=== PATIENT | male | born 1980 | race Caucasian/White ===

== ENCOUNTER 2018-12-03 07:29 | Observation (INO) | payer SELFPAY ==
[2018-12-03] MEDS ORDERED: ONDANSETRON HCL INJ/PF 4 MG/2 ML SDV IV ONE (07:58)
[2018-12-03] MEDS ORDERED: MORPHINE SULFATE 10 MG/ML INJ IV ONE ×2 (07:58→10:36)
[2018-12-03] MEDS ORDERED: VANCOMYCIN HCL INJ 1000 MG VIAL IV ONE ×2 (08:00→11:00)
[2018-12-03 08:10] LABS: ABSOLUTE BASOPHILS # (AUTO) 0.1 10^3/uL (0.0-0.2); ABSOLUTE EOSINOPHILS # (AUTO) 0.2 10^3/uL (0.0-0.6); ABSOLUTE LYMPHOCYTES (AUTO) 1.4 10^3/uL (0.5-4.7); ABSOLUTE MONOCYTES (AUTO) 1.1 10^3/uL (0.1-1.4); ABSOLUTE NEUT (AUTO) 10.7 10^3/uL (1.7-8.2); BASOPHILS % (AUTO) 0.5 % (0-2); EOSINOPHILS % (AUTO) 1.6 % (0-6); HEMATOCRIT 43.5 % (37.9-51.0); LYMPHOCYTES % (AUTO) 10.6 % (13-45); MEAN CORPUSCULAR HEMOGLOBIN 29.7 pg (27.0-33.4); MEAN CORPUSCULAR HGB CONC 34.5 g/dL (32.0-36.0); MEAN CORPUSCULAR VOLUME 86 fl (80-97); MONOCYTES % (AUTO) 8.2 % (3-13); PLATELET COUNT 235 10^3/uL (150-450); RED BLOOD COUNT 5.06 10^6/uL (4.35-5.55); RED CELL DISTRIBUTION WIDTH 12.2 % (11.5-14.0); SEGMENTED NEUTROPHILS % (AUTO) 79.1 % (42-78); TOTAL CELLS COUNTED % (AUTO) 100 %; WHITE BLOOD COUNT 13.5 10^3/uL (4.0-10.5)
[2018-12-03] MEDS ORDERED: LEVOFLOXACIN 750 MG/D5W RTU 750 MG/150 ML RTUPB IV ONE (08:12)
--- NOTE | 2018-12-03 08:42 | RADIOLOGY REPORT (SQ) ---
EXAM DESCRIPTION: HAND LEFT 3 VIEWS COMPLETED DATE/TIME: 12/03/2018 8:24 am REASON FOR STUDY: abscess/infection 5th prox phalanx COMPARISON: None. EXAM PARAMETERS: NUMBER OF VIEWS: Three views. TECHNIQUE: AP, lateral and oblique radiographic images acquired of the left hand. LIMITATIONS: None. FINDINGS: MINERALIZATION: Normal. BONES: No acute fracture or dislocation. No worrisome bone lesions. JOINTS: No effusions. SOFT TISSUES: Swelling 5th phalanx. No foreign body. OTHER: No other significant finding. IMPRESSION: No evidence of osteomyelitis. TECHNICAL DOCUMENTATION: JOB ID: [id number] [employer]- All Rights Reserved Reading location - IP/workstation name: [email or web address]
--- NOTE | 2018-12-03 08:45 | ER Document Report ---
ED General - General Chief Complaint: Hand Swelling Stated Complaint: HAND PAIN Time Seen by Provider: 12/03/18 07:46 TRAVEL OUTSIDE OF THE [place] IN LAST 30 DAYS: No - HPI Notes: Patient presents emergency department for evaluation of swelling of the hand. He states he has had a possible abscess with swelling of the left fifth digit. He denies any injury. He states he "tried to edin it" without any significant results. No fevers or chills. No nausea or vomiting. He is right-hand dominant. He states he has significant pain, particularly with movement. He rates it a 9 out of 10. He describes it as a sharp and stabbing pain. He states the pain radiates from his hand all the way into his left axilla. - Related Data Allergies/Adverse Reactions: Penicillins Allergy (Verified 12/03/18 07:47) Past Medical History - Social History Smoking Status: Current Every Day Smoker Chew tobacco use (# tins/day): No Frequency of alcohol use: None Drug Abuse: None Family History: Reviewed & Not Pertinent Patient has suicidal ideation: No Patient has homicidal ideation: No Renal/ Medical History: Denies: Hx Peritoneal Dialysis Other: Patient states he has had an abscess in the past, unsure as to whether or not it was MRSA. - Immunizations Hx Diphtheria, Pertussis, Tetanus Vaccination: Yes Review of Systems - Review of Systems Constitutional: No symptoms reported EENT: No symptoms reported Cardiovascular: No symptoms reported Respiratory: No symptoms reported Gastrointestinal: No symptoms reported Male Genitourinary: No symptoms reported Musculoskeletal: See HPI Skin: See HPI Physical Exam - Vital signs Vitals: Temp Pulse Resp BP Pulse Ox 97.6 F 107 H 18 143/89 H 98 12/03/18 07:33 12/03/18 07:33 12/03/18 07:33 12/03/18 07:33 12/03/18 07:33 Interpretation: Tachycardic - Notes Notes: Vital signs reviewed, please refer to chart. Patient is normocephalic, atraumatic. Pupils equal round, reactive to light. Neck is supple without men ingismus. Heart is regular rate and rhythm. Lungs are clear to auscultation bilaterally. Abdomen is soft, nontender, normoactive bowel sounds throughout. Extremities without cyanosis, clubbing. Peripheral pulses are equal. Patient is awake, alert, neurological exam is nonfocal. Examination of the left upper extremity is a moderate amount of swelling of the left hand and the left wrist. There is significant edema and an abscess over the proximal fifth phalanx, dorsal aspect. Patient holds the finger in a flexed position, passive extension or movement of any sort causes significant pain. He is tender over the entire extensor tendon. He has lymphangitic streaking there was approximately 5 cm proximal to the distal ulna. Radial pulses 2+. Capillary refill is brisk. Course - Re-evaluation Re-evalutation: 12/03/18 08:45 Patient presents emergency department for evaluation. He is unsure as to whether or not he has a history of MRSA. Given the location of his abscess and the surrounding cellulitis surrounding, as well as the lymphangitic streaking and pain into his axilla. I am concerned this patient may be septic with a tenosynovitis. He is given IV vancomycin and Levaquin. Given pain medication, improved upon recheck. 12/03/18 10:20 Patient rechecked. His white count is elevated. His heart rate did improve after IV fluids and pain medication. I am still concerned about the possibility of tenosynovitis. I spoke to our on-call orthopedic physician, who will admit the patient for further care. The patient was given verbal orders to main n.p.o., order placed. - Vital Signs Vital signs: Temp Pulse Resp BP Pulse Ox 97.6 F 107 H 18 143/89 H 98 12/03/18 07:33 12/03/18 07:33 12/03/18 07:33 12/03/18 07:33 12/03/18 07:33 - Laboratory Result Diagrams: 12/03/18 07:58 12/03/18 08:36 Laboratory results interpreted by me: 12/03/18 12/03/18 07:58 08:36 WBC 13.5 H Seg Neutrophils % 79.1 H Lymphocytes % 10.6 L Absolute Neutrophils 10.7 H C-Reactive Protein 46.9 H - Diagnostic Test Radiology reviewed: Reports reviewed - Negative for osteomyelitis - Consults Christina Reason for consultation: 12/03/18 10:20 Will admit the patient Discharge - Discharge Clinical Impression: Tenosynovitis of finger and hand, Cellulitis Condition: Stable Disposition: ADMITTED INPATIENT Admitting Provider: Christina Unit Admitted: Medical Floor
[2018-12-03 09:09] LABS: ALANINE AMINOTRANSFERASE 26 U/L (21-72); ALBUMIN 4.3 g/dL (3.5-5.0); ALKALINE PHOSPHATASE 96 U/L (38-126); ANION GAP 11 (5-19); ASPARTATE AMINO TRANSFERASE 23 U/L (17-59); BILIRUBIN,DIRECT 0.3 mg/dL (0.0-0.4); BILIRUBIN,TOTAL 0.3 mg/dL (0.2-1.3); BLOOD UREA NITROGEN 9 mg/dL (7-20); C-REACTIVE PROTEIN 46.9 mg/L (<10.0); CALCIUM 9.2 mg/dL (8.4-10.2); CARBON DIOXIDE 30 mmol/L (22-30); CHLORIDE 100 mmol/L (98-107); GLUCOSE 91 mg/dL (75-110); POTASSIUM 4.2 mmol/L (3.6-5.0); SODIUM 140.7 mmol/L (137-145); TOTAL PROTEIN 6.9 g/dL (6.3-8.2)
[2018-12-03] MEDS ORDERED: LIDOCAINE 1% INJ-PF (10 MG/ML) 30 ML SDV ONE (13:27)
[2018-12-03] MEDS ORDERED: MORPHINE SULFATE 10 MG/ML INJ IV PRN (14:10)
[2018-12-03] MEDS ORDERED: ONDANSETRON HCL INJ/PF 4 MG/2 ML SDV IV PRN (14:10)
[2018-12-03] MEDS: OXYCODONE-ACETAMINOPHEN 5-325 MG TABLET PO PRN ×2 (14:48→23:28)
--- NOTE | 2018-12-03 14:48 | PDOC H&P ---
History of Present Illness Admission Date/PCP: 12/03/18 10:45 Patient complains of: Left small finger pain History of Present Illness: YUSEF RAHMAN is a 38 year old male patient states he began to have pain swelling and redness in his left small finger which began approximately yesterday. States he attempted to "lanced" the abscess but was unable to express any drainage but over the past 24 hours continued to have redness swelling that was streaking up his arm. Denies fever chills or sweats. Pain worse with any attempted motion. Pain 9/10. Patient denies recent travel, puncture wound injury, insect bite or IV drug abuse Social History Smoking Status: Current Every Day Smoker Family History Family History: Reviewed & Not Pertinent Parental Family History Reviewed: No Children Family History Reviewed: No Sibling(s) Family History Reviewed.: No Medication/Allergy Home Medications: No Home Medications 12/03/18 Allergies/Adverse Reactions: Penicillins Allergy (Verified 12/03/18 07:47) Review of Systems Constitutional: ABSENT: chills, fever(s), headache(s), weight gain, weight loss Eyes: ABSENT: visual disturbances Ears: ABSENT: hearing changes Cardiovascular: ABSENT: chest pain, dyspnea on exertion, edema, orthropnea, palpitations Respiratory: ABSENT: cough, hemoptysis Gastrointestinal: ABSENT: abdominal pain, constipation, diarrhea, hematemesis, hematochezia, nausea, vomiting Genitourinary: ABSENT: dysuria, hematuria Musculoskeletal: PRESENT: as per HPI Integumentary: ABSENT: rash, wounds Neurological: ABSENT: abnormal gait, abnormal speech, confusion, dizziness, focal weakness, syncope Psychiatric: ABSENT: anxiety, depression, homidical ideation, suicidal ideation Endocrine: ABSENT: cold intolerance, heat intolerance, menstrual abnormalities, polydipsia, polyuria Hematologic/Lymphatic: ABSENT: easy bleeding, easy bruising, lymphadenopathy Physical Exam Vital Signs: Temp Pulse Resp BP Pulse Ox 97.9 F 106 H 18 130/81 H 96 12/03/18 13:54 12/03/18 13:54 12/03/18 13:54 12/03/18 13:54 12/03/18 13:54 Intake & Output 12/02/18 12/03/18 12/04/18 06:59 06:59 06:59 Intake Total 150 Balance 150 Weight 71 kg General appearance: PRESENT: no acute distress, well-developed, well-nourished Head exam: PRESENT: atraumatic, normocephalic Eye exam: PRESENT: conjunctiva pink, EOMI, PERRLA. ABSENT: scleral icterus Ear exam: PRESENT: normal external ear exam Mouth exam: PRESENT: moist, tongue midline Neck exam: PRESENT: full ROM. ABSENT: carotid bruit, JVD, lymphadenopathy, thyromegaly Cardiovascular exam: PRESENT: RRR. ABSENT: diastolic murmur, rubs, systolic murmur Pulses: PRESENT: normal dorsalis pedis pul, +2 pedal pulses bilateral Vascular exam: PRESENT: normal capillary refill GI/Abdominal exam: PRESENT: normal bowel sounds, soft. ABSENT: distended, guarding, mass, organolmegaly, rebound, tenderness Rectal exam: PRESENT: deferred Musculoskeletal exam: PRESENT: other - Left small finger: Tenderness palpation dorsally along the proximal aspect of the proximal phalanx. Wound noted dorsally at the level of the proximal phalanx dorsally with palpable fluctuance. No volar sided or palmar tenderness. Pain with attempted manipulation of the PIP and MCP joint. Erythema extending along the ulnar aspect of the hand with tenderness along the epitrochlear and axillary lymph nodes. No sensory deficits. Neurological exam: PRESENT: alert, awake, oriented to person, oriented to place, oriented to time, oriented to situation, CN II-XII grossly intact. ABSENT: motor sensory deficit Psychiatric exam: PRESENT: appropriate affect, normal mood. ABSENT: homicidal ideation, suicidal ideation Skin exam: PRESENT: dry, intact, warm. ABSENT: cyanosis, rash Results Laboratory Results: 12/03/18 07:58 12/03/18 08:36 12/03/18 12/03/18 12/03/18 07:58 07:58 08:36 WBC 13.5 H RBC 5.06 Hgb 15.0 Hct 43.5 MCV 86 MCH 29.7 MCHC 34.5 RDW 12.2 Plt Count 235 Seg Neutrophils % 79.1 H Lymphocytes % 10.6 L Monocytes % 8.2 Eosinophils % 1.6 Basophils % 0.5 Absolute Neutrophils 10.7 H Absolute Lymphocytes 1.4 Absolute Monocytes 1.1 Absolute Eosinophils 0.2 Absolute Basophils 0.1 Sodium Cancelled Potassium Cancelled Chloride Cancelled Carbon Dioxide Cancelled Anion Gap Cancelled BUN Cancelled Creatinine Cancelled Est GFR ( Amer) Cancelled Est GFR (Non-Af Amer) Cancelled Glucose Cancelled Lactic Acid 1.1 Calcium Cancelled Total Bilirubin Cancelled AST Cancelled ALT Cancelled Alkaline Phosphatase Cancelled C-Reactive Protein Cancelled Total Protein Cancelled Albumin Cancelled 12/03/18 08:36 WBC RBC Hgb Hct MCV MCH MCHC RDW Plt Count Seg Neutrophils % Lymphocytes % Monocytes % Eosinophils % Basophils % Absolute Neutrophils Absolute Lymphocytes Absolute Monocytes Absolute Eosinophils Absolute Basophils Sodium 140.7 Potassium 4.2 Chloride 100 Carbon Dioxide 30 Anion Gap 11 BUN 9 Creatinine 0.88 Est GFR ( Amer) > 60 Est GFR (Non-Af Amer) > 60 Glucose 91 Lactic Acid Calcium 9.2 Total Bilirubin 0.3 AST 23 ALT 26 Alkaline Phosphatase 96 C-Reactive Protein 46.9 H Total Protein 6.9 Albumin 4.3 Impressions: Hand X-Ray 12/03/18 07:59 IMPRESSION: No evidence of osteomyelitis. Status: Image reviewed by me - I have reviewed patient's radiographs which are consistent with swelling along the soft tissues of the small finger no evidence of osseous abnormality Assessment & Plan - Diagnosis (1) Abscess of finger of left hand Is this a current diagnosis for this admission?: Yes Plan: There are no signs or symptoms to suggest septic flexor tenosynovitis he does have evidence of a dorsal finger abscess. Today we discussed treatment options given the superficial nature and location I have recommended proceeding with bedside irrigation and debridement. Risks and benefits of bedside irrigation and debridement were explained to the patient risks including neurovascular risk, recurrent infection necessitating operative intervention, post procedure pain and stiffness. He has verbalized understanding consented for the procedure. Patient will be admitted to the hospital to be started on vancomycin and clindamycin for possible MRSA. Cultures will be obtained in the procedure. See procedure note for details.
--- NOTE | 2018-12-03 14:51 | Operative Report ---
Operative Report DATE OF SURGERY: 12/03/18 PREOPERATIVE DIAGNOSIS: Left small finger abscess POSTOPERATIVE DIAGNOSIS: Same OPERATION: Irrigation debridement left small finger abscess SURGEON: DLATON ZENG ANESTHESIA: Local TISSUE REMOVED OR ALTERED: Aerobic/anaerobic cultures obtained COMPLICATIONS: None ESTIMATED BLOOD LOSS: Minimal PROCEDURE: Left small finger was prepped with Betadine digital block was performed utilizing 10 cc of 1% lidocaine without epinephrine. Was adequate and excised and was prepped with Betadine and draped in a sterile fashion. Confirmed appropriate extremity and procedure details with the patient who verbalized understanding. Digital tourniquet was then placed small transverse stab incision was made where patient previously had attempted self decompression. Blunt dissection was performed copious amount of purulence was encountered along the dorsal aspect of the small finger at the level of the proximal phalanx was extended along the radial aspect but not volarly. Cultures were obtained. Wound was then copiously irrigated with normal saline and a small [place] drain placed. Wound was dressed Xeroform 4 x 4's and a soft bandage. Patient tolerated procedure well.
[2018-12-03] MEDS: VANCOMYCIN HCL 1,000 MG in DEXTROSE 5%-WATER 250 ML IV SCH (17:48)
[2018-12-03] MEDS: CLINDAMYCIN 600 MG/D5W RTU 600 MG/50 ML RTUPB IV SCH (21:39)
[2018-12-04] MEDS: VANCOMYCIN HCL 1,000 MG in DEXTROSE 5%-WATER 250 ML IV SCH ×2 (02:10→11:49)
[2018-12-04 08:06] LABS: ABSOLUTE EOSINOPHILS # (AUTO) 0.2 10^3/uL (0.0-0.6); ABSOLUTE LYMPHOCYTES (AUTO) 1.5 10^3/uL (0.5-4.7); BASOPHILS % (AUTO) 0.4 % (0-2); EOSINOPHILS % (AUTO) 1.3 % (0-6); LYMPHOCYTES % (AUTO) 12.7 % (13-45); MEAN CORPUSCULAR HEMOGLOBIN 29.9 pg (27.0-33.4); MEAN CORPUSCULAR HGB CONC 34.9 g/dL (32.0-36.0); MEAN CORPUSCULAR VOLUME 86 fl (80-97); MONOCYTES % (AUTO) 8.5 % (3-13); PLATELET COUNT 220 10^3/uL (150-450); RED BLOOD COUNT 5.02 10^6/uL (4.35-5.55); RED CELL DISTRIBUTION WIDTH 12.1 % (11.5-14.0); SEGMENTED NEUTROPHILS % (AUTO) 77.1 % (42-78); TOTAL CELLS COUNTED % (AUTO) 100 %; WHITE BLOOD COUNT 11.7 10^3/uL (4.0-10.5)
[2018-12-04] MEDS ORDERED: ONDANSETRON HCL INJ/PF 4 MG/2 ML SDV IV PRN (09:00)
[2018-12-04] MEDS ORDERED: VANCOMYCIN HCL INJ 1000 MG VIAL IV SCH (10:00)
[2018-12-04] MEDS: CLINDAMYCIN 600 MG/D5W RTU 600 MG/50 ML RTUPB IV SCH ×3 (10:28→22:29)
[2018-12-04 11:42] LABS: VANCOMYCIN,TROUGH 8.4 ug/mL (5.0-20.0)
[2018-12-04] MEDS: OXYCODONE-ACETAMINOPHEN 5-325 MG TABLET PO PRN ×2 (12:02→20:25)
[2018-12-04] MEDS: VANCOMYCIN HCL 1,250 MG in DEXTROSE 5%-WATER 250 ML IV SCH (19:46)
[2018-12-05] MEDS: VANCOMYCIN HCL 1,250 MG in DEXTROSE 5%-WATER 250 ML IV SCH ×2 (02:26→11:05)
[2018-12-05] MEDS: CLINDAMYCIN 600 MG/D5W RTU 600 MG/50 ML RTUPB IV SCH (05:28)
--- NOTE | 2018-12-05 07:17 | PDOC PROGRESS REPORT ---
Subjective Progress Note for:: 12/04/18 Subjective:: Patient continues to have residual discomfort of his left hand. Denies fever chills or sweats overnight. Pain currently controlled with Percocet and morphine. Reason For Visit: ABSCESS RIGHT SMALL FINGER Physical Exam Vital Signs: Temp Pulse Resp BP Pulse Ox 98.7 F 99 16 158/64 H 97 12/03/18 23:17 12/03/18 23:17 12/03/18 23:17 12/03/18 23:17 12/03/18 23:17 Intake & Output 12/03/18 12/04/18 12/05/18 06:59 06:59 06:59 Intake Total 700 Balance 700 Weight 71 kg Gentrourinary exam: ABSENT: ecchymosis, erythema, lacerations, lesions, scrotal swelling, testicular tenderness, urethral discharge, indwelling catheter, other Musculoskeletal exam: PRESENT: other - Left hand: No evidence of streaking erythema. Residual swelling along the small finger. No tenderness on the fle xor sheath. Limited range of motion intact PIP/DIP/MP joint range of motion. Patient lacks full range of motion however secondary to swelling. Intact sensation light touch. Cap refill less than 2 seconds. Results Laboratory Results: 12/03/18 08:36 12/03/18 12/03/18 12/03/18 07:58 07:58 08:36 WBC 13.5 H RBC 5.06 Hgb 15.0 Hct 43.5 MCV 86 MCH 29.7 MCHC 34.5 RDW 12.2 Plt Count 235 Seg Neutrophils % 79.1 H Lymphocytes % 10.6 L Monocytes % 8.2 Eosinophils % 1.6 Basophils % 0.5 Absolute Neutrophils 10.7 H Absolute Lymphocytes 1.4 Absolute Monocytes 1.1 Absolute Eosinophils 0.2 Absolute Basophils 0.1 Sodium Cancelled Potassium Cancelled Chloride Cancelled Carbon Dioxide Cancelled Anion Gap Cancelled BUN Cancelled Creatinine Cancelled Est GFR ( Amer) Cancelled Est GFR (Non-Af Amer) Cancelled Glucose Cancelled Lactic Acid 1.1 Calcium Cancelled Total Bilirubin Cancelled AST Cancelled ALT Cancelled Alkaline Phosphatase Cancelled C-Reactive Protein Cancelled Total Protein Cancelled Albumin Cancelled 12/03/18 08:36 WBC RBC Hgb Hct MCV MCH MCHC RDW Plt Count Seg Neutrophils % Lymphocytes % Monocytes % Eosinophils % Basophils % Absolute Neutrophils Absolute Lymphocytes Absolute Monocytes Absolute Eosinophils Absolute Basophils Sodium 140.7 Potassium 4.2 Chloride 100 Carbon Dioxide 30 Anion Gap 11 BUN 9 Creatinine 0.88 Est GFR ( Amer) > 60 Est GFR (Non-Af Amer) > 60 Glucose 91 Lactic Acid Calcium 9.2 Total Bilirubin 0.3 AST 23 ALT 26 Alkaline Phosphatase 96 C-Reactive Protein 46.9 H Total Protein 6.9 Albumin 4.3 Impressions: Hand X-Ray 12/03/18 07:59 IMPRESSION: No evidence of osteomyelitis. Assessment & Plan - Diagnosis (1) Abscess of finger of left hand Is this a current diagnosis for this admission?: Yes Plan: Status post bedside irrigation debridement left small finger 1. Will begin chlorhexidine soaks twice daily with wet-to-dry dressing changes 2. Pain control with oxycodone/morphine 3. Anticipate discharge on 12/05/18 on p.o. antibiotics if patient continues to show clinical improvement.
[2018-12-05 08:43] LABS: ABSOLUTE BASOPHILS # (AUTO) 0.1 10^3/uL (0.0-0.2); ABSOLUTE EOSINOPHILS # (AUTO) 0.2 10^3/uL (0.0-0.6); ABSOLUTE LYMPHOCYTES (AUTO) 1.5 10^3/uL (0.5-4.7); ABSOLUTE MONOCYTES (AUTO) 0.8 10^3/uL (0.1-1.4); ABSOLUTE NEUT (AUTO) 6.1 10^3/uL (1.7-8.2); BASOPHILS % (AUTO) 0.7 % (0-2); EOSINOPHILS % (AUTO) 2.4 % (0-6); HEMATOCRIT 48.5 % (37.9-51.0); HEMOGLOBIN 16.9 g/dL (13.5-17.0); LYMPHOCYTES % (AUTO) 17.3 % (13-45); MEAN CORPUSCULAR HEMOGLOBIN 29.9 pg (27.0-33.4); MEAN CORPUSCULAR HGB CONC 34.8 g/dL (32.0-36.0); MEAN CORPUSCULAR VOLUME 86 fl (80-97); MONOCYTES % (AUTO) 9.3 % (3-13); PLATELET COUNT 240 10^3/uL (150-450); RED BLOOD COUNT 5.65 10^6/uL (4.35-5.55); SEGMENTED NEUTROPHILS % (AUTO) 70.3 % (42-78); TOTAL CELLS COUNTED % (AUTO) 100 %; WHITE BLOOD COUNT 8.6 10^3/uL (4.0-10.5)
[2018-12-05] MEDS: OXYCODONE-ACETAMINOPHEN 5-325 MG TABLET PO PRN (09:09)
--- NOTE | 2018-12-05 10:10 | PDOC PROGRESS REPORT ---
Subjective Subjective:: Patient continues to have residual discomfort of his left hand, there has been improvement. Addison denies fever chills or sweats overnight. Pain currently controlled with Percocet and morphine. Reason For Visit: ABSCESS RIGHT SMALL FINGER Physical Exam Vital Signs: Temp Pulse Resp BP Pulse Ox 97.6 F 94 16 127/93 H 100 12/05/18 07:50 12/05/18 07:50 12/05/18 07:50 12/05/18 07:50 12/05/18 07:50 Intake & Output 12/04/18 12/05/18 12/06/18 06:59 06:59 06:59 Intake Total 700 1380 800 Balance 700 1380 800 Weight 71 kg Musculoskeletal exam: PRESENT: other - Left small finger: Maceration along the dorsal wound. There is mild drainage. [place] drain removed today. No tenderness on the flexor sheath. No streaking erythema. Cap refill less than 2 seconds. No evidence of lymphangitis. Results Laboratory Results: 12/05/18 07:48 12/03/18 08:36 12/05/18 07:48 WBC 8.6 RBC 5.65 H Hgb 16.9 Hct 48.5 MCV 86 MCH 29.9 MCHC 34.8 RDW 12.0 Plt Count 240 Seg Neutrophils % 70.3 Lymphocytes % 17.3 Monocytes % 9.3 Eosinophils % 2.4 Basophils % 0.7 Absolute Neutrophils 6.1 Absolute Lymphocytes 1.5 Absolute Monocytes 0.8 Absolute Eosinophils 0.2 Absolute Basophils 0.1 Impressions: Hand X-Ray 12/03/18 07:59 IMPRESSION: No evidence of osteomyelitis. Assessment & Plan - Diagnosis (1) Abscess of finger of left hand Is this a current diagnosis for this admission?: Yes Plan: Status post bedside irrigation debridement left small finger 1. Will continue chlorhexidine soaks twice daily with wet-to-dry dressing changes 2. Pain control with oxycodone/morphine 3. A patient continues to have evidence of drainage I have recommended continuing IV antibiotics until culture sensitivities are determined. Anticipate MRSA. Possible discharge home on 12/06/18
[2018-12-05 12:04] VITALS: BP 127/74
--- NOTE | 2018-12-05 17:21 | PDOC DISCHARGE SUMMARY ---
General - Admit/Disc Date/PCP Admission Date/Primary Care Provider: 12/03/18 10:45 Discharge Date: 12/05/18 - Discharge Diagnosis (1) Abscess of finger of left hand Is this a current diagnosis for this admission?: Yes - Additional Information Resuscitation Status: Full Code Discharge Diet: As Tolerated Discharge Activity: No Lifting Over 10 Pounds, No Lifting/Push/Pulling Prescriptions: Oxycodone HCl/Acetaminophen [Percocet 5-325 mg Tablet] 1 tab PO Q6 PRN #25 tab PRN Reason: Sulfamethoxazole/Trimethoprim [Bactrim Ds Tablet] 2 each PO BID #40 tablet Home Medications: Oxycodone HCl/Acetaminophen [Percocet 5-325 mg Tablet] 1 tab PO Q6 PRN #25 tab 12/05/18 Sulfamethoxazole/Trimethoprim [Bactrim Ds Tablet] 2 each PO BID #40 tablet 12/05/18 History of Present Illness History of Present Illness: YUSEF RAHMAN is a 38 year old male patient states he began to have pain swelling and redness in his left small finger which began approximately yesterday. States he attempted to "lanced" the abscess but was unable to express any drainage but over the past 24 hours continued to have redness swelling that was streaking up his arm. Denies fever chills or sweats. Pain worse with any attempted motion. Pain 9/10. Patient denies recent travel, puncture wound injury, insect bite or IV drug abuse Hospital Course Hospital Course: Patient underwent bedside irrigation debridement expressing significant purulence along the dorsal aspect of the left small finger. He was then admitted to the hospital due to concerns of worsening infection. Patient was started on IV vancomycin. Patient did see clinical improvement over 48 hours but continued to have residual redness and mild drainage from the wound. Patient's white blood cell count did improve. On 12/05/18 patient was adamant about leaving the hospital and demanded he be discharged. At that point was explained the risk of leaving AGAINST MEDICAL ADVICE including worsening infection which could result in mortality/ or loss of digit caused by worsening infection. Patient understood these risks and left AMA. Patient did receive prescription for Bactrim which cultures demonstrated susceptibility to. Physical Exam Vital Signs: Temp Pulse Resp BP Pulse Ox 98.1 F 83 14 127/74 H 96 12/05/18 11:25 12/05/18 11:25 12/05/18 11:25 12/05/18 11:25 12/05/18 11:25 Intake & Output 12/04/18 12/05/18 12/06/18 06:59 06:59 06:59 Intake Total 700 1380 800 Balance 700 1380 800 Weight 71 kg Results Laboratory Results: 12/05/18 07:48 12/03/18 08:36 12/05/18 07:48 WBC 8.6 RBC 5.65 H Hgb 16.9 Hct 48.5 MCV 86 MCH 29.9 MCHC 34.8 RDW 12.0 Plt Count 240 Seg Neutrophils % 70.3 Lymphocytes % 17.3 Monocytes % 9.3 Eosinophils % 2.4 Basophils % 0.7 Absolute Neutrophils 6.1 Absolute Lymphocytes 1.5 Absolute Monocytes 0.8 Absolute Eosinophils 0.2 Absolute Basophils 0.1 12/03/18 13:40 Finger - Left Pinky Finger Gram Stain - Final 12/03/18 13:40 Finger - Left Pinky Finger Wound Culture - Final Staphylococcus Aureus Impressions: Hand X-Ray 12/03/18 07:59 IMPRESSION: No evidence of osteomyelitis. Qualifiers - * PATIENT BEING DISCHARGED WITH ANY OF THE FOLLOWING DIAGNOSIS: No Plan Discharge Plan: Patient left AMA thus full discharge plan was not completely finalized including requiring home health versus dressing changes.
== END 2018-12-05 12:40 | disposition left against medical advice (07) ==
LOC: ER 07:29 → INTOOBSV 10:45 → EH 10:45 → 2N 15:27
PROVIDERS: ADMIT Orthopaedic Surgery; ATTEND Orthopaedic Surgery
PROC: 0J9K0ZZ Drainage of Left Hand Subcutaneous Tissue and Fascia, Open Approach (ICD-10-PCS; principal; 2018-12-03)
DX: L02.512 Cutaneous abscess of left hand (principal); M79.645 Pain in left finger(s); F17.200 Nicotine dependence, unspecified, uncomplicated; R00.0 Tachycardia, unspecified; B95.61 Methicillin susceptible Staphylococcus aureus infection as the cause of diseases classified elsewhere; D72.829 Elevated white blood cell count, unspecified; Z53.21 Procedure and treatment not carried out due to patient leaving prior to being seen by health care provider
CPT/HCPCS: 99284; 96375; 96365; 36415 ×3; 87040; 87070; 87205; 85025 ×3; 86140; 87077; 80053; 87186; 80202; 83605; 73130; 26011; G0378 ×4; J2270; J2405; J7060 ×3; J3370 ×3; J1956